=== PATIENT | male | born 1955 | race Caucasian/White ===

== ENCOUNTER 2021-07-11 11:44 | Inpatient (IN) | payer MEDICARE, MEDICAID ==
[~2021-07-11 11:44] MED LIST: Rocuronium Bromide 10 MG/ML (10ML VIAL) ONE; Succinylcholine 200 MG/10 ml SYRINGE FS ONE
[2021-07-11 12:41] LABS: Actual Bicarbonate (HCO3a) 24.6 mEq/L (22-28); Base Excess (BEa) -3.3 mEq/L (-2.0 to +3.0); CO2 Tension 55.2 mmHg (35.0-45.0); Calcium, Ionized (arterial) 1.04 mmol/L (1.12-1.30); Carboxyhemoglobin (COHb) 4.1 gm% (0.0-3.0); Hemoglobin (Hb) 15.2 g/dL (14.0-18.0); O2 Tension (PaO2), arterial 163.4 mmHg (> 80.0); Potassium - ABG Lab 4.6 mmol/L (3.70-5.30); Puncture Site RRA; pH, Arterial 7.27 (7.35-7.45)
[2021-07-11] MEDS ORDERED: Furosemide 40 MG/4 ML VIAL ONE (12:46)
[2021-07-11] MEDS ORDERED: Sodium Chloride 3% 100 ML IVPB SCH ×2 (13:30→16:00)
[2021-07-11] MEDS ORDERED: Acetaminophen 325 MG TAB PO PRN (13:40)
[2021-07-11] MEDS ORDERED: Furosemide 40 MG/4 ML VIAL SLOW IVP SCH ×3 (14:00→23:00)
[2021-07-11 14:19] LABS: CRP (Inflammatory) 4.71 mg/dL (= or < 0.5); Magnesium 1.6 mg/dL (1.6-2.6)
[2021-07-11 14:19] LABS: Anion Gap 19 mmol/L (10-20); BUN (Urea Nitrogen) 8 mg/dL (8.4-25.7); Calc. Creatinine Clearance 0 mL/min (70-130); Calcium 8.5 mg/dL (7.8-10.44); Carbon Dioxide 22 mmol/L (23-31); Chloride 76 mmol/L (98-107); Glucose 119 mg/dL (80-115); Potassium 4.6 mmol/L (3.5-5.1)
[2021-07-11 14:20] LABS: CK (CPK) 1008 U/L (30-200); Phosphorus 3.3 mg/dL (2.3-4.7)
[2021-07-11 14:28] LABS: Sodium 112 mmol/L (136-145)
[2021-07-11 14:32] LABS: Troponin I 0.085 ng/mL (< 0.028)
[2021-07-11 15:59] LABS: Legionella Urinary Ag Negative (Negative); Strep pneumo Urine Ag NEGATIVE (NEGATIVE)
[2021-07-11] MEDS ORDERED: Magnesium 2 GM/50 ML(in water) 2 GM in Premix Bag 1 BAG IVPB SCH (17:30)
[2021-07-11 19:23] LABS: Anion Gap 17 mmol/L (10-20); BUN (Urea Nitrogen) 7 mg/dL (8.4-25.7); Calc. Creatinine Clearance 113 mL/min (70-130); Calcium 8.5 mg/dL (7.8-10.44); Carbon Dioxide 28 mmol/L (23-31); Glucose 112 mg/dL (80-115)
[2021-07-11 19:38] LABS: Chloride 74 mmol/L (98-107); Sodium 115 mmol/L (136-145)
[2021-07-11] MEDS: Sodium Chloride 1 GM TAB PO SCH (23:16)
[2021-07-11] MEDS: Famotidine 20 MG TAB PO SCH (23:16)
[2021-07-11 23:18] LABS: Anion Gap 15 mmol/L (10-20); BUN (Urea Nitrogen) 7 mg/dL (8.4-25.7); Calc. Creatinine Clearance 104 mL/min (70-130); Calcium 8.7 mg/dL (7.8-10.44); Carbon Dioxide 29 mmol/L (23-31); Glucose 116 mg/dL (80-115); Potassium 4.2 mmol/L (3.5-5.1)
[2021-07-11 23:46] LABS: Chloride 74 mmol/L (98-107); Sodium 114 mmol/L (136-145)
[2021-07-11 23:50] LABS: Amphetamine Not Detected (NotDetected); Barbiturates Screen Not Detected (NotDetected); Benzodiazepine Screen Not Detected (NotDetected); Cocaine Metabolite Screen Not Detected (NotDetected); Methadone Not Detected (NotDetected); Methamphetamine Not Detected (NotDetected); Opiate Screen Not Detected (NotDetected); Oxycodone Screen Not Detected (NotDetected); Phencyclidine (PCP) Not Detected (NotDetected); THC/Cannabinoid Screen Not Detected (NotDetected); Tricyclic Screen Not Detected (NotDetected)
[2021-07-12] MEDS ORDERED: Sodium Chloride 3% 100 ML IVPB SCH (00:30)
[2021-07-12 02:22] LABS: Sodium 116 mmol/L (136-145)
[2021-07-12] MEDS ORDERED: Midazolam HCl 2 mg/2 ml Vial ONE (02:51)
[2021-07-12] MEDS ORDERED: Rocuronium Bromide 10 MG/ML (10ML VIAL) ONE (02:55)
[2021-07-12] MEDS ORDERED: Propofol 1,000 MG/100 ML VIAL IV ONE (02:58)
[2021-07-12] MEDS ORDERED: Sodium Chloride 0.9% 1,000 ML IV SCH (03:30)
[2021-07-12 03:46] LABS: Actual Bicarbonate (HCO3a) 27.7 mEq/L (22-28); Base Excess (BEa) -0.7 mEq/L (-2.0 to +3.0); CO2 Tension 61.2 mmHg (35.0-45.0); Calcium, Ionized (arterial) 1.11 mmol/L (1.12-1.30); Hemoglobin (Hb) 15.5 g/dL (14.0-18.0); O2 Tension (PaO2), arterial 122.7 mmHg (> 80.0); Potassium - ABG Lab 3.6 mmol/L (3.70-5.30); Puncture Site RRA; pH, Arterial 7.27 (7.35-7.45)
[2021-07-12] MEDS ORDERED: Furosemide 40 MG/4 ML VIAL SLOW IVP SCH (06:00)
[2021-07-12 06:16] LABS: #Basophils 0.1 10x3/uL (0.0-0.2); #Monocytes 1.5 10x3/uL (0.0-1.1); %Basophils 0.3 % (0.0-2.0); %Eosinophils 0.1 % (0.0-6.0); %Lymphocytes 3.6 % (18.0-47.0); %Monocytes 7.9 % (0.0-10.0); %Neutrophils 87.5 % (40.0-75.0); Mean Corpuscular HGB CONC 34.6 g/dL (32.0-36.0); Mean Corpuscular Hemoglobin 33.4 pg (27.0-33.0); Mean Corpuscular Volume 96.4 fl (81.2-95.1); Mean Platelet Volume 8.9 fl (7.4-10.4); Platelet Count 206 10x3/uL (150-450); RBC Distribution Width 12.6 % (11.5-14.5); Red Blood Cell (RBC) Count 4.49 10x6/uL (4.32-5.72); White Blood Cell (WBC) Count 19.4 10x3/uL (3.5-10.5)
[2021-07-12] MEDS ORDERED: Norepinephrine 8 MG/0.9% NS 250 ML ONE (06:17)
[2021-07-12] MEDS: Cefepime 2 GM in Sodium Chloride 0.9% 100 ML IVPB SCH ×3 (06:37→22:05)
[2021-07-12 06:54] LABS: Anion Gap 15 mmol/L (10-20); BUN (Urea Nitrogen) 9 mg/dL (8.4-25.7); Calc. Creatinine Clearance 104 mL/min (70-130); Calcium 8.4 mg/dL (7.8-10.44); Carbon Dioxide 29 mmol/L (23-31); Chloride 80 mmol/L (98-107); Glucose 106 mg/dL (80-115); Potassium 3.9 mmol/L (3.5-5.1); Sodium 120 mmol/L (136-145)
[2021-07-12 07:00] LABS: Magnesium 1.9 mg/dL (1.6-2.6); Troponin I 0.054 ng/mL (< 0.028)
[2021-07-12 07:05] LABS: Critical Call Chem Troponin I RESULT DECREASING
[2021-07-12] MEDS ORDERED: Vancomycin 1.5 GRAM/300 ML BAG 1.5 GM in Premix Bag 1 BAG IVPB SCH (08:00)
[2021-07-12] MEDS ORDERED: Enoxaparin Sodium 40 MG/0.4 ML SYRINGE SC SCH (09:00)
[2021-07-12 09:24] LABS: Hemoglobin 14.8 g/dL (13.5-17.5); Mean Corpuscular HGB CONC 35.8 g/dL (32.0-36.0); Mean Corpuscular Hemoglobin 34.3 pg (27.0-33.0); Mean Corpuscular Volume 95.6 fl (81.2-95.1); Mean Platelet Volume 8.8 fl (7.4-10.4); Platelet Count 211 10x3/uL (150-450); RBC Distribution Width 12.8 % (11.5-14.5); Red Blood Cell (RBC) Count 4.32 10x6/uL (4.32-5.72); White Blood Cell (WBC) Count 20.8 10x3/uL (3.5-10.5)
[2021-07-12] MEDS ORDERED: Iopamidol 370 76% 100 ML VIAL ONE (09:43)
[2021-07-12] MEDS ORDERED: Dextrose 5% in Water 1,000 ML IV SCH (09:45)
[2021-07-12 09:47] LABS: Anion Gap 14 mmol/L (10-20); BUN (Urea Nitrogen) 10 mg/dL (8.4-25.7); Calc. Creatinine Clearance 94 mL/min (70-130); Calcium 8.1 mg/dL (7.8-10.44); Carbon Dioxide 29 mmol/L (23-31); Chloride 81 mmol/L (98-107); Glucose 117 mg/dL (80-115); Sodium 120 mmol/L (136-145)
[2021-07-12] MEDS ORDERED: Enoxaparin Sodium 30 MG/0.3 ML SYRINGE SC SCH (10:00)
[2021-07-12 10:45] LABS: Lactic Acid 1.2 mmol/L (0.5-2.2)
[2021-07-12] MEDS: Aspirin Chewable 81 MG TAB PO SCH (10:59)
[2021-07-12] MEDS: Famotidine 20 MG TAB PO SCH ×2 (10:59→20:16)
[2021-07-12] MEDS: Vasopressin 20 UNIT, Admixture Fee 1 EACH in Sodium Chloride 0.9% 50 ML IV SCH ×2 (12:00→17:03)
[2021-07-12 12:27] LABS: Anion Gap 15 mmol/L (10-20); BUN (Urea Nitrogen) 11 mg/dL (8.4-25.7); Calc. Creatinine Clearance 91 mL/min (70-130); Calcium 8.3 mg/dL (7.8-10.44); Carbon Dioxide 29 mmol/L (23-31); Chloride 80 mmol/L (98-107); Glucose 101 mg/dL (80-115); Magnesium 1.7 mg/dL (1.6-2.6); Phosphorus 3.4 mg/dL (2.3-4.7); Potassium 4.1 mmol/L (3.5-5.1); Sodium 120 mmol/L (136-145)
[2021-07-12] MEDS: Sodium Chloride 1 GM TAB PO SCH ×3 (13:03→20:25)
[2021-07-12] MEDS: Albumin 25% 25 GM/100 ML BOT IVPB SCH ×2 (15:26→20:16)
[2021-07-12 16:25] LABS: Phosphorus 3.1 mg/dL (2.3-4.7)
[2021-07-12 16:27] LABS: Anion Gap 13 mmol/L (10-20); BUN (Urea Nitrogen) 12 mg/dL (8.4-25.7); Calc. Creatinine Clearance 94 mL/min (70-130); Calcium 8.2 mg/dL (7.8-10.44); Carbon Dioxide 28 mmol/L (23-31); Chloride 82 mmol/L (98-107); Glucose 95 mg/dL (80-115); Magnesium 1.7 mg/dL (1.6-2.6); Potassium 3.9 mmol/L (3.5-5.1)
[2021-07-12 16:48] LABS: Sodium 119 mmol/L (136-145)
[2021-07-12] MEDS: Magnesium 2 GM/50 ML(in water) 2 GM in Premix Bag 1 BAG IVPB SCH ×2 (17:22→18:38)
[2021-07-12] MEDS: Norepinephrine 8 MG/0.9% NS 250 ML IVPB SCH (17:41)
[2021-07-12] MEDS: fentaNYL Citrate-0.9 % NaCl/PF 100 ML IVPB SCH (17:48)
[2021-07-12] MEDS ORDERED: Hydrocortisone Sod Succ/PF 100 mg/2 ml Vial IVP SCH (18:15)
[2021-07-12] MEDS ORDERED: Albumin 25% 25 GM/100 ML BOT IVPB SCH (18:15)
[2021-07-12 19:12] LABS: Phosphorus 2.5 mg/dL (2.3-4.7)
[2021-07-12 19:14] LABS: Anion Gap 14 mmol/L (10-20); BUN (Urea Nitrogen) 12 mg/dL (8.4-25.7); Calc. Creatinine Clearance 94 mL/min (70-130); Calcium 8.2 mg/dL (7.8-10.44); Carbon Dioxide 27 mmol/L (23-31); Chloride 83 mmol/L (98-107); Glucose 84 mg/dL (80-115); Magnesium 2.2 mg/dL (1.6-2.6); Potassium 3.6 mmol/L (3.5-5.1); Sodium 120 mmol/L (136-145)
[2021-07-12] MEDS: Budesonide 0.5 MG/2 ML NEB NEB SCH (19:14)
[2021-07-12] MEDS: Vancomycin HCl 1 GM in Sodium Chloride 0.9% 250 ML 250 ML IVPB SCH (20:17)
[2021-07-12] MEDS ORDERED: Potassium Bicarbonate/Cit Ac 20 MEQ TAB PER TUBE SCH (22:15)
[2021-07-12] MEDS ORDERED: Magnesium 2 GM/50 ML(in water) 2 GM in Premix Bag 1 BAG IVPB SCH (22:30)
[2021-07-12 23:49] LABS: Magnesium 2.6 mg/dL (1.6-2.6); Phosphorus 2.6 mg/dL (2.3-4.7)
[2021-07-13] MEDS: Vasopressin 20 UNIT, Admixture Fee 1 EACH in Sodium Chloride 0.9% 50 ML IV SCH ×3 (00:17→11:58)
[2021-07-13] MEDS: Hydrocortisone Sod Succ/PF 100 mg/2 ml Vial IVP SCH ×4 (00:35→18:31)
[2021-07-13] MEDS: Albumin 25% 25 GM/100 ML BOT IVPB SCH ×2 (02:19→10:20)
[2021-07-13] MEDS: Norepinephrine 8 MG/0.9% NS 250 ML IVPB SCH (04:13)
[2021-07-13 04:26] LABS: #Eosinphils 0.1 10x3/uL (0.0-0.5); #Monocytes 0.7 10x3/uL (0.0-1.1); %Basophils 0.2 % (0.0-2.0); %Eosinophils 0.4 % (0.0-6.0); %Lymphocytes 1.6 % (18.0-47.0); %Monocytes 3.8 % (0.0-10.0); %Neutrophils 93.3 % (40.0-75.0); Hemoglobin 11.9 g/dL (13.5-17.5); Mean Corpuscular HGB CONC 33.9 g/dL (32.0-36.0); Mean Corpuscular Hemoglobin 33.2 pg (27.0-33.0); Mean Platelet Volume 9.1 fl (7.4-10.4); Platelet Count 158 10x3/uL (150-450); RBC Distribution Width 12.5 % (11.5-14.5); Red Blood Cell (RBC) Count 3.58 10x6/uL (4.32-5.72); White Blood Cell (WBC) Count 17.2 10x3/uL (3.5-10.5)
[2021-07-13 04:38] LABS: Phosphorus 2.9 mg/dL (2.3-4.7)
[2021-07-13 04:41] LABS: Anion Gap 17 mmol/L (10-20); BUN (Urea Nitrogen) 14 mg/dL (8.4-25.7); Calc. Creatinine Clearance 86 mL/min (70-130); Calcium 8.5 mg/dL (7.8-10.44); Carbon Dioxide 24 mmol/L (23-31); Chloride 85 mmol/L (98-107); Glucose 116 mg/dL (80-115); Potassium 4.3 mmol/L (3.5-5.1); Sodium 122 mmol/L (136-145)
[2021-07-13] MEDS: Cefepime 2 GM in Sodium Chloride 0.9% 100 ML IVPB SCH ×2 (04:53→13:06)
[2021-07-13] MEDS: Budesonide 0.5 MG/2 ML NEB NEB SCH ×2 (07:46→19:27)
[2021-07-13] MEDS ORDERED: DEXMEDETOMIDINE ONE (08:24)
[2021-07-13] MEDS ORDERED: NACL 0.9% ONE (08:24)
[2021-07-13] MEDS: Dexmedetomidine In 0.9 % NaCl 100 ML IVPB SCH ×3 (08:30→22:29)
[2021-07-13] MEDS: fentaNYL Citrate-0.9 % NaCl/PF 100 ML IVPB SCH ×2 (08:49→16:24)
[2021-07-13] MEDS: Aspirin Chewable 81 MG TAB PO SCH (10:20)
[2021-07-13] MEDS: Sodium Chloride 1 GM TAB PO SCH ×3 (10:21→22:50)
[2021-07-13] MEDS: Enoxaparin Sodium 40 MG/0.4 ML SYRINGE SC SCH (10:21)
[2021-07-13] MEDS: Vancomycin HCl 1 GM in Sodium Chloride 0.9% 250 ML 250 ML IVPB SCH ×2 (10:22→22:48)
[2021-07-13] MEDS: Famotidine 20 MG TAB PO SCH ×2 (10:22→22:49)
[2021-07-13 10:56] LABS: Actual Bicarbonate (HCO3a) 26.3 mEq/L (22-28); Base Excess (BEa) -2.2 mEq/L (-2.0 to +3.0); CO2 Tension 62.5 mmHg (35.0-45.0); Calcium, Ionized (arterial) 1.18 mmol/L (1.12-1.30); Carboxyhemoglobin (COHb) 1.1 gm% (0.0-3.0); Hemoglobin (Hb) 13.2 g/dL (14.0-18.0); O2 Tension (PaO2), arterial 64.5 mmHg (> 80.0); Potassium - ABG Lab 4.8 mmol/L (3.70-5.30); Puncture Site Arterial Line; pH, Arterial 7.24 (7.35-7.45)
[2021-07-13 10:59] LABS: ALV-art Gradient 178.225 mmHg (0-20)
[2021-07-13] MEDS ORDERED: Thiamine HCl 200 MG/2 ML VIAL SLOW IVP SCH (11:15)
[2021-07-13] MEDS: Thiamine HCl 500 MG, Admixture Fee 1 EACH in Sodium Chloride 0.9% 100 ML IVPB SCH (12:00)
[2021-07-13] MEDS ORDERED: Cefepime 2 GM VIAL ONE ×3 (12:49→12:50)
[2021-07-13] MEDS: Metoclopramide HCl 10 MG/2 ML VIAL IVP SCH ×2 (12:58→18:29)
[2021-07-13] MEDS ORDERED: Polyethylene Glycol 3350 17 GM Packet PER TUBE SCH (13:00)
[2021-07-13] MEDS ORDERED: Senokot S 8.6-50 MG TAB PER TUBE SCH (13:00)
[2021-07-13] MEDS ORDERED: Sodium Chloride 0.9% 1,000 ML IV SCH (13:00)
[2021-07-13 13:06] LABS: Anion Gap 15 mmol/L (10-20); BUN (Urea Nitrogen) 17 mg/dL (8.4-25.7); Calc. Creatinine Clearance 84 mL/min (70-130); Calcium 8.6 mg/dL (7.8-10.44); Carbon Dioxide 27 mmol/L (23-31); Chloride 87 mmol/L (98-107); Glucose 171 mg/dL (80-115); Magnesium 2.7 mg/dL (1.6-2.6); Potassium 4.9 mmol/L (3.5-5.1); Sodium 124 mmol/L (136-145)
[2021-07-13 15:54] LABS: Anion Gap 13 mmol/L (10-20); BUN (Urea Nitrogen) 18 mg/dL (8.4-25.7); Calc. Creatinine Clearance 91 mL/min (70-130); Calcium 8.6 mg/dL (7.8-10.44); Carbon Dioxide 26 mmol/L (23-31); Chloride 90 mmol/L (98-107); Glucose 167 mg/dL (80-115); Magnesium 2.5 mg/dL (1.6-2.6); Phosphorus 2.1 mg/dL (2.3-4.7); Potassium 4.7 mmol/L (3.5-5.1); Sodium 124 mmol/L (136-145)
[2021-07-13] MEDS: Haloperidol Lactate 5 MG/ML VIAL SLOW IVP PRN (17:15)
[2021-07-13 18:49] LABS: Anion Gap 11 mmol/L (10-20); BUN (Urea Nitrogen) 19 mg/dL (8.4-25.7); Calc. Creatinine Clearance 87 mL/min (70-130); Calcium 8.7 mg/dL (7.8-10.44); Carbon Dioxide 27 mmol/L (23-31); Chloride 89 mmol/L (98-107); Glucose 164 mg/dL (80-115); Magnesium 2.6 mg/dL (1.6-2.6); Potassium 4.6 mmol/L (3.5-5.1); Sodium 122 mmol/L (136-145)
[2021-07-13 20:21] LABS: Vancomycin, Trough 13.8 ug/mL
[2021-07-13] MEDS ORDERED: Sodium Chloride 0.9% 250 ML 250 ML ONE ×2 (22:49)
[2021-07-13] MEDS: Senokot S 8.6-50 MG TAB PER TUBE SCH (22:49)
[2021-07-13] MEDS: Sodium Chloride 0.9% 1,000 ML IV SCH (22:50)
[2021-07-14] MEDS: Cefepime 2 GM in Sodium Chloride 0.9% 100 ML IVPB SCH ×4 (00:08→20:43)
[2021-07-14 00:13] LABS: Anion Gap 16 mmol/L (10-20); BUN (Urea Nitrogen) 18 mg/dL (8.4-25.7); Calc. Creatinine Clearance 91 mL/min (70-130); Calcium 8.6 mg/dL (7.8-10.44); Carbon Dioxide 24 mmol/L (23-31); Chloride 94 mmol/L (98-107); Glucose 160 mg/dL (80-115); Magnesium 2.5 mg/dL (1.6-2.6); Potassium 4.7 mmol/L (3.5-5.1); Sodium 129 mmol/L (136-145)
[2021-07-14 00:17] LABS: Phosphorus 1.7 mg/dL (2.3-4.7)
[2021-07-14] MEDS: Hydrocortisone Sod Succ/PF 100 mg/2 ml Vial IVP SCH ×5 (00:32→23:34)
[2021-07-14] MEDS: Metoclopramide HCl 10 MG/2 ML VIAL IVP SCH ×5 (00:33→23:34)
[2021-07-14] MEDS: fentaNYL Citrate-0.9 % NaCl/PF 100 ML IVPB SCH ×3 (01:04→17:08)
[2021-07-14 03:53] LABS: #Neutrophils 13.3 10x3/uL (1.5-8.4); %Basophils 0.1 % (0.0-2.0); %Lymphocytes 2.6 % (18.0-47.0); %Monocytes 6.9 % (0.0-10.0); %Neutrophils 89.8 % (40.0-75.0); Hemoglobin 12.1 g/dL (13.5-17.5); Mean Corpuscular HGB CONC 34.9 g/dL (32.0-36.0); Mean Corpuscular Hemoglobin 33.3 pg (27.0-33.0); Mean Corpuscular Volume 95.6 fl (81.2-95.1); Mean Platelet Volume 9.2 fl (7.4-10.4); Platelet Count 164 10x3/uL (150-450); RBC Distribution Width 12.9 % (11.5-14.5); Red Blood Cell (RBC) Count 3.63 10x6/uL (4.32-5.72); White Blood Cell (WBC) Count 14.8 10x3/uL (3.5-10.5)
[2021-07-14 04:08] LABS: Anion Gap 15 mmol/L (10-20); BUN (Urea Nitrogen) 19 mg/dL (8.4-25.7); Calc. Creatinine Clearance 88 mL/min (70-130); Calcium 8.7 mg/dL (7.8-10.44); Carbon Dioxide 24 mmol/L (23-31); Chloride 94 mmol/L (98-107); Glucose 172 mg/dL (80-115); Potassium 4.7 mmol/L (3.5-5.1); Sodium 128 mmol/L (136-145)
[2021-07-14] MEDS: Dexmedetomidine In 0.9 % NaCl 100 ML IVPB SCH ×4 (04:49→23:45)
[2021-07-14] MEDS: Budesonide 0.5 MG/2 ML NEB NEB SCH ×2 (05:11→19:35)
[2021-07-14 06:24] LABS: Magnesium 2.6 mg/dL (1.6-2.6)
[2021-07-14 06:27] LABS: Phosphorus 1.9 mg/dL (2.3-4.7)
[2021-07-14 08:06] LABS: Anion Gap 14 mmol/L (10-20); BUN (Urea Nitrogen) 19 mg/dL (8.4-25.7); Calc. Creatinine Clearance 89 mL/min (70-130); Calcium 8.7 mg/dL (7.8-10.44); Carbon Dioxide 23 mmol/L (23-31); Chloride 95 mmol/L (98-107); Glucose 183 mg/dL (80-115); Magnesium 2.6 mg/dL (1.6-2.6); Potassium 4.8 mmol/L (3.5-5.1); Sodium 127 mmol/L (136-145)
[2021-07-14 08:12] LABS: Vancomycin, Trough 14.7 ug/mL
[2021-07-14 08:14] LABS: Phosphorus 1.7 mg/dL (2.3-4.7)
[2021-07-14] MEDS: Senokot S 8.6-50 MG TAB PER TUBE SCH ×2 (08:21→20:43)
[2021-07-14] MEDS: Aspirin Chewable 81 MG TAB PO SCH (08:21)
[2021-07-14] MEDS: Famotidine/PF 20 mg/2ml Vial SLOW IVP SCH ×2 (08:22→20:43)
[2021-07-14] MEDS: Enoxaparin Sodium 40 MG/0.4 ML SYRINGE SC SCH (08:22)
[2021-07-14] MEDS: Vancomycin HCl 1 GM in Sodium Chloride 0.9% 250 ML 250 ML IVPB SCH ×2 (08:22→20:43)
[2021-07-14] MEDS: Polyethylene Glycol 3350 17 GM Packet PER TUBE SCH (08:22)
[2021-07-14] MEDS ORDERED: Sodium Phosphate 15 MMOL in Sodium Chloride 0.9% 250 ML 250 ML IVPB SCH (09:00)
[2021-07-14] MEDS ORDERED: Rocuronium Bromide 10 MG/ML (10ML VIAL) ONE (11:00)
[2021-07-14] MEDS ORDERED: Lorazepam 2 MG/ML VIAL SLOW IVP PRN (11:52)
[2021-07-14] MEDS ORDERED: Ethambutol HCl 400 MG TAB PER TUBE SCH (12:00)
[2021-07-14] MEDS ORDERED: Pyrazinamide 500 MG TAB PER TUBE SCH ×2 (12:00→15:15)
[2021-07-14] MEDS ORDERED: PHENobarbital Sodium 65 MG/ML VIAL SLOW IVP SCH (12:00)
[2021-07-14] MEDS ORDERED: Rifampin 300 MG CAP PO SCH (12:00)
[2021-07-14] MEDS ORDERED: Isoniazid 100 MG TAB PO SCH (12:00)
[2021-07-14 12:05] LABS: HIV (1/2) Antibody/Antigen Non-Reactive (NonReactive); HIV 1/2 INDEX 0.05 S/CO (<1.00)
[2021-07-14 12:12] LABS: Actual Bicarbonate (HCO3a) 26.9 mEq/L (22-28); Base Excess (BEa) 0.5 mEq/L (-2.0 to +3.0); CO2 Tension 50.7 mmHg (35.0-45.0); Calcium, Ionized (arterial) 1.21 mmol/L (1.12-1.30); Carboxyhemoglobin (COHb) 0.7 gm% (0.0-3.0); Hemoglobin (Hb) 12.8 g/dL (14.0-18.0); O2 Tension (PaO2), arterial 239.7 mmHg (> 80.0); Potassium - ABG Lab 4.7 mmol/L (3.70-5.30); Puncture Site Arterial Line; pH, Arterial 7.34 (7.35-7.45)
[2021-07-14] MEDS: Thiamine HCl 500 MG, Admixture Fee 1 EACH in Sodium Chloride 0.9% 100 ML IVPB SCH (12:14)
[2021-07-14 12:16] LABS: ALV-art Gradient 409.925 mmHg (0-20)
[2021-07-14] MEDS: Prenatal Vitamin 1 TAB PO SCH (12:20)
[2021-07-14] MEDS ORDERED: SODIUM CHLORIDE IVPB SCH (12:30)
[2021-07-14] MEDS ORDERED: ADMIXTURE FEE IVPB SCH (12:30)
[2021-07-14] MEDS ORDERED: PHENOBARBITAL SODIUM IVPB SCH (12:30)
[2021-07-14 13:16] LABS: BF Color White; BF RBC Count - Manual 261 /cu.mm; BF WBC/Nonhematics Ct.-Manual 8806 /cu.mm; Body Fluid Source Bronchial Washings; Clarity Cloudy/Turbid (Clear); Tube # 1
[2021-07-14 13:16] LABS: Anion Gap 12 mmol/L (10-20); BUN (Urea Nitrogen) 20 mg/dL (8.4-25.7); Calc. Creatinine Clearance 97 mL/min (70-130); Calcium 8.7 mg/dL (7.8-10.44); Carbon Dioxide 25 mmol/L (23-31); Chloride 94 mmol/L (98-107); Glucose 159 mg/dL (80-115); Magnesium 2.5 mg/dL (1.6-2.6); Phosphorus 2.5 mg/dL (2.3-4.7); Potassium 4.8 mmol/L (3.5-5.1); Sodium 126 mmol/L (136-145)
[2021-07-14 13:57] LABS: BF Segmented Neutrophils 98 %; Lymphocytes 2 %
[2021-07-14 17:49] LABS: Anion Gap 12 mmol/L (10-20); BUN (Urea Nitrogen) 20 mg/dL (8.4-25.7); Calc. Creatinine Clearance 95 mL/min (70-130); Calcium 8.6 mg/dL (7.8-10.44); Carbon Dioxide 24 mmol/L (23-31); Chloride 97 mmol/L (98-107); Glucose 174 mg/dL (80-115); Magnesium 2.4 mg/dL (1.6-2.6); Phosphorus 2.3 mg/dL (2.3-4.7); Potassium 4.8 mmol/L (3.5-5.1); Sodium 128 mmol/L (136-145)
[2021-07-14] MEDS ORDERED: Magnesium 2 GM/50 ML(in water) 2 GM in Premix Bag 1 BAG IVPB SCH (18:15)
[2021-07-14 22:01] LABS: Anion Gap 10 mmol/L (10-20); BUN (Urea Nitrogen) 21 mg/dL (8.4-25.7); Calc. Creatinine Clearance 94 mL/min (70-130); Calcium 8.5 mg/dL (7.8-10.44); Carbon Dioxide 27 mmol/L (23-31); Chloride 96 mmol/L (98-107); Glucose 176 mg/dL (80-115); Magnesium 3.2 mg/dL (1.6-2.6); Phosphorus 2.4 mg/dL (2.3-4.7); Potassium 4.7 mmol/L (3.5-5.1); Sodium 128 mmol/L (136-145)
[2021-07-15 01:30] LABS: Anion Gap 15 mmol/L (10-20); BUN (Urea Nitrogen) 22 mg/dL (8.4-25.7); Calc. Creatinine Clearance 90 mL/min (70-130); Calcium 8.4 mg/dL (7.8-10.44); Carbon Dioxide 22 mmol/L (23-31); Chloride 98 mmol/L (98-107); Glucose 174 mg/dL (80-115); Magnesium 2.7 mg/dL (1.6-2.6); Phosphorus 2.5 mg/dL (2.3-4.7); Potassium 4.9 mmol/L (3.5-5.1); Sodium 130 mmol/L (136-145)
[2021-07-15] MEDS: fentaNYL Citrate-0.9 % NaCl/PF 100 ML IVPB SCH ×3 (02:25→19:45)
[2021-07-15 03:37] LABS: #Monocytes 0.9 10x3/uL (0.0-1.1); #Neutrophils 13.6 10x3/uL (1.5-8.4); %Basophils 0.1 % (0.0-2.0); %Lymphocytes 3.5 % (18.0-47.0); %Monocytes 5.9 % (0.0-10.0); %Neutrophils 89.9 % (40.0-75.0); Hemoglobin 12.6 g/dL (13.5-17.5); Mean Corpuscular HGB CONC 35.2 g/dL (32.0-36.0); Mean Corpuscular Hemoglobin 33.5 pg (27.0-33.0); Mean Corpuscular Volume 95.2 fl (81.2-95.1); Mean Platelet Volume 9.1 fl (7.4-10.4); Platelet Count 162 10x3/uL (150-450); RBC Distribution Width 13.3 % (11.5-14.5); Red Blood Cell (RBC) Count 3.76 10x6/uL (4.32-5.72); White Blood Cell (WBC) Count 15.1 10x3/uL (3.5-10.5)
[2021-07-15 03:37] LABS: Actual Bicarbonate (HCO3a) 24.8 mEq/L (22-28); CO2 Tension 41.1 mmHg (35.0-45.0); Calcium, Ionized (arterial) 1.19 mmol/L (1.12-1.30); Carboxyhemoglobin (COHb) 0.7 gm% (0.0-3.0); Hemoglobin (Hb) 13.5 g/dL (14.0-18.0); O2 Tension (PaO2), arterial 93.2 mmHg (> 80.0); Potassium - ABG Lab 4.7 mmol/L (3.70-5.30); Puncture Site Arterial Line
[2021-07-15 03:40] LABS: ALV-art Gradient 176.275 mmHg (0-20)
[2021-07-15 03:53] LABS: Albumin 3.3 g/dL (3.4-4.8); Anion Gap 13 mmol/L (10-20); BUN (Urea Nitrogen) 22 mg/dL (8.4-25.7); BUN/Creatinine Ratio 27.85; Calc. Creatinine Clearance 91 mL/min (70-130); Calcium 8.5 mg/dL (7.8-10.44); Carbon Dioxide 23 mmol/L (23-31); Chloride 98 mmol/L (98-107); Glucose 184 mg/dL (80-115); Phosphorus 2.3 mg/dL (2.3-4.7); Sodium 129 mmol/L (136-145)
[2021-07-15] MEDS: Dexmedetomidine In 0.9 % NaCl 100 ML IVPB SCH ×4 (04:58→23:16)
[2021-07-15] MEDS: Hydrocortisone Sod Succ/PF 100 mg/2 ml Vial IVP SCH ×3 (04:58→17:40)
[2021-07-15] MEDS: Cefepime 2 GM in Sodium Chloride 0.9% 100 ML IVPB SCH ×3 (04:58→20:59)
[2021-07-15 06:34] LABS: Anion Gap 14 mmol/L (10-20); BUN (Urea Nitrogen) 22 mg/dL (8.4-25.7); Calc. Creatinine Clearance 98 mL/min (70-130); Calcium 8.6 mg/dL (7.8-10.44); Carbon Dioxide 22 mmol/L (23-31); Chloride 99 mmol/L (98-107); Glucose 179 mg/dL (80-115); Magnesium 2.6 mg/dL (1.6-2.6); Phosphorus 2.4 mg/dL (2.3-4.7); Potassium 4.8 mmol/L (3.5-5.1); Sodium 130 mmol/L (136-145)
[2021-07-15] MEDS: Budesonide 0.5 MG/2 ML NEB NEB SCH ×2 (07:50→19:33)
[2021-07-15] MEDS: Polyethylene Glycol 3350 17 GM Packet PER TUBE SCH (08:04)
[2021-07-15] MEDS: Aspirin Chewable 81 MG TAB PO SCH (08:05)
[2021-07-15] MEDS: Enoxaparin Sodium 40 MG/0.4 ML SYRINGE SC SCH (08:05)
[2021-07-15] MEDS: Famotidine/PF 20 mg/2ml Vial SLOW IVP SCH ×2 (08:05→20:58)
[2021-07-15] MEDS: Ethambutol HCl 400 MG TAB PER TUBE SCH (08:06)
[2021-07-15] MEDS: Rifampin 300 MG CAP PO SCH (08:07)
[2021-07-15] MEDS: Pyrazinamide 500 MG TAB PER TUBE SCH (08:08)
[2021-07-15] MEDS: Isoniazid 100 MG TAB PO SCH (08:09)
[2021-07-15] MEDS: Senokot S 8.6-50 MG TAB PER TUBE SCH ×2 (08:11→21:00)
[2021-07-15] MEDS ORDERED: Ethambutol HCl 400 MG TAB PER TUBE SCH (09:00)
[2021-07-15] MEDS ORDERED: Pyrazinamide 500 MG TAB PER TUBE SCH (09:00)
[2021-07-15] MEDS: Vancomycin HCl 1 GM in Sodium Chloride 0.9% 250 ML 250 ML IVPB SCH ×2 (09:32→23:43)
[2021-07-15] MEDS ORDERED: Rifampin 300 MG CAP PO SCH (10:00)
[2021-07-15 10:56] LABS: Anion Gap 11 mmol/L (10-20); BUN (Urea Nitrogen) 25 mg/dL (8.4-25.7); Calc. Creatinine Clearance 98 mL/min (70-130); Calcium 8.3 mg/dL (7.8-10.44); Carbon Dioxide 25 mmol/L (23-31); Chloride 98 mmol/L (98-107); Glucose 202 mg/dL (80-115); Magnesium 2.9 mg/dL (1.6-2.6); Phosphorus 2.6 mg/dL (2.3-4.7); Potassium 4.7 mmol/L (3.5-5.1); Sodium 129 mmol/L (136-145)
[2021-07-15] MEDS: Metoclopramide HCl 10 MG/2 ML VIAL IVP SCH ×3 (11:20→19:44)
[2021-07-15] MEDS: Prenatal Vitamin 1 TAB PO SCH (11:28)
[2021-07-15] MEDS: Thiamine HCl 500 MG, Admixture Fee 1 EACH in Sodium Chloride 0.9% 100 ML IVPB SCH (12:52)
[2021-07-15] MEDS: Sodium Chloride 0.9% 1,000 ML IV SCH (13:14)
[2021-07-15] MEDS ORDERED: Sodium Chloride 0.9% 100 ML ONE (21:00)
[2021-07-15 21:32] LABS: Vancomycin, Trough 14.9 ug/mL
[2021-07-15] MEDS: Scopolamine 1.5 mg/72 hour Patch TD SCH (23:46)
[2021-07-16] MEDS: Hydrocortisone Sod Succ/PF 100 mg/2 ml Vial IVP SCH ×4 (01:26→20:16)
[2021-07-16] MEDS: Metoclopramide HCl 10 MG/2 ML VIAL IVP SCH ×4 (01:26→20:16)
[2021-07-16] MEDS: Sodium Chloride 0.9% 1,000 ML IV SCH ×2 (01:28→15:15)
[2021-07-16 03:18] LABS: ALV-art Gradient 120.325 mmHg (0-20); Actual Bicarbonate (HCO3a) 22.9 mEq/L (22-28); CO2 Tension 44.1 mmHg (35.0-45.0); Calcium, Ionized (arterial) 1.26 mmol/L (1.12-1.30); Carboxyhemoglobin (COHb) 0.9 gm% (0.0-3.0); Hemoglobin (Hb) 13.7 g/dL (14.0-18.0); O2 Tension (PaO2), arterial 74.1 mmHg (> 80.0); Potassium - ABG Lab 5.1 mmol/L (3.70-5.30); Puncture Site Arterial Line; pH, Arterial 7.33 (7.35-7.45)
[2021-07-16 04:25] LABS: ALT (SGPT) Less than 6 U/L (8-55); AST (SGOT) 12 U/L (5-34); Albumin 3.2 g/dL (3.4-4.8); Alkaline Phosphatase 50 U/L (40-110); Anion Gap 13 mmol/L (10-20); BUN (Urea Nitrogen) 27 mg/dL (8.4-25.7); Bilirubin, Total 0.4 mg/dL (0.2-1.2); Calc. Creatinine Clearance 88 mL/min (70-130); Calcium 8.5 mg/dL (7.8-10.44); Carbon Dioxide 24 mmol/L (23-31); Chloride 101 mmol/L (98-107); Globulin 2.4 g/dL (2.4-3.5); Glucose 149 mg/dL (80-115); Magnesium 2.5 mg/dL (1.6-2.6); Phosphorus 2.3 mg/dL (2.3-4.7); Potassium 4.9 mmol/L (3.5-5.1); Protein, Total 5.6 g/dL (5.8-8.1); Sodium 133 mmol/L (136-145)
[2021-07-16 04:48] LABS: #Monocytes 1.4 10x3/uL (0.0-1.1); #Neutrophils 16.8 10x3/uL (1.5-8.4); %Basophils 0.2 % (0.0-2.0); %Lymphocytes 3.3 % (18.0-47.0); %Monocytes 7.4 % (0.0-10.0); %Neutrophils 88.4 % (40.0-75.0); Hemoglobin 12.4 g/dL (13.5-17.5); Mean Corpuscular HGB CONC 33.2 g/dL (32.0-36.0); Mean Corpuscular Hemoglobin 33.3 pg (27.0-33.0); Mean Corpuscular Volume 100.3 fl (81.2-95.1); Mean Platelet Volume 9.3 fl (7.4-10.4); Platelet Count 166 10x3/uL (150-450); RBC Distribution Width 13.8 % (11.5-14.5); Red Blood Cell (RBC) Count 3.72 10x6/uL (4.32-5.72); White Blood Cell (WBC) Count 18.9 10x3/uL (3.5-10.5)
[2021-07-16] MEDS: Dexmedetomidine In 0.9 % NaCl 100 ML IVPB SCH ×4 (05:51→23:52)
[2021-07-16] MEDS: fentaNYL Citrate-0.9 % NaCl/PF 100 ML IVPB SCH ×2 (05:51→16:26)
[2021-07-16] MEDS: Cefepime 2 GM in Sodium Chloride 0.9% 100 ML IVPB SCH ×3 (05:51→20:22)
[2021-07-16] MEDS: Budesonide 0.5 MG/2 ML NEB NEB SCH ×2 (07:18→20:29)
[2021-07-16] MEDS: Enoxaparin Sodium 40 MG/0.4 ML SYRINGE SC SCH (07:46)
[2021-07-16] MEDS: Aspirin Chewable 81 MG TAB PO SCH (07:46)
[2021-07-16] MEDS: Polyethylene Glycol 3350 17 GM Packet PER TUBE SCH (07:46)
[2021-07-16] MEDS: Senokot S 8.6-50 MG TAB PER TUBE SCH ×2 (07:46→20:15)
[2021-07-16] MEDS: Vancomycin HCl 1 GM in Sodium Chloride 0.9% 250 ML 250 ML IVPB SCH ×2 (07:46→20:17)
[2021-07-16] MEDS: Famotidine/PF 20 mg/2ml Vial SLOW IVP SCH ×2 (07:47→20:16)
[2021-07-16] MEDS: Rifampin 300 MG CAP PO SCH (07:49)
[2021-07-16] MEDS: Ethambutol HCl 400 MG TAB PER TUBE SCH (07:49)
[2021-07-16] MEDS: Isoniazid 100 MG TAB PO SCH (07:50)
[2021-07-16] MEDS: Sodium Chloride 1 GM TAB PO SCH ×3 (07:50→20:22)
[2021-07-16] MEDS: Pyrazinamide 500 MG TAB PER TUBE SCH (07:53)
[2021-07-16] MEDS: Prenatal Vitamin 1 TAB PO SCH (12:31)
[2021-07-16] MEDS: Thiamine HCl 500 MG, Admixture Fee 1 EACH in Sodium Chloride 0.9% 100 ML IVPB SCH (13:02)
[2021-07-16] MEDS: oxyCODONE 5 MG TAB PO SCH (16:24)
[2021-07-16] MEDS: Diazepam 5 MG TAB PO SCH (20:15)
[2021-07-16] MEDS ORDERED: Polyethylene Glycol 3350 17 GM Packet PER TUBE SCH (22:00)
[2021-07-17] MEDS: fentaNYL Citrate-0.9 % NaCl/PF 100 ML IVPB SCH ×2 (00:53→13:44)
[2021-07-17] MEDS: Hydrocortisone Sod Succ/PF 100 mg/2 ml Vial IVP SCH ×4 (01:56→19:46)
[2021-07-17] MEDS: Metoclopramide HCl 10 MG/2 ML VIAL IVP SCH ×4 (01:56→19:46)
[2021-07-17 04:22] LABS: Hemoglobin 11.8 g/dL (13.5-17.5); Mean Corpuscular HGB CONC 33.4 g/dL (32.0-36.0); Mean Corpuscular Hemoglobin 33.4 pg (27.0-33.0); Mean Platelet Volume 9.3 fl (7.4-10.4); Platelet Count 164 10x3/uL (150-450); RBC Distribution Width 14.3 % (11.5-14.5); Red Blood Cell (RBC) Count 3.53 10x6/uL (4.32-5.72); White Blood Cell (WBC) Count 20.6 10x3/uL (3.5-10.5)
[2021-07-17 04:29] LABS: ALV-art Gradient 76.725 mmHg (0-20); Actual Bicarbonate (HCO3a) 20.1 mEq/L (22-28); Base Excess (BEa) -5.1 mEq/L (-2.0 to +3.0); CO2 Tension 37.7 mmHg (35.0-45.0); Calcium, Ionized (arterial) 1.23 mmol/L (1.12-1.30); Hemoglobin (Hb) 13.6 g/dL (14.0-18.0); O2 Tension (PaO2), arterial 125.7 mmHg (> 80.0); Potassium - ABG Lab 5.3 mmol/L (3.70-5.30); Puncture Site Arterial Line; pH, Arterial 7.34 (7.35-7.45)
[2021-07-17 04:29] LABS: Albumin 2.8 g/dL (3.4-4.8); Anion Gap 12 mmol/L (10-20); BUN (Urea Nitrogen) 35 mg/dL (8.4-25.7); BUN/Creatinine Ratio 42.17; Calc. Creatinine Clearance 96 mL/min (70-130); Calcium 7.8 mg/dL (7.8-10.44); Carbon Dioxide 18 mmol/L (23-31); Chloride 110 mmol/L (98-107); Glucose 143 mg/dL (80-115); Sodium 135 mmol/L (136-145)
[2021-07-17 04:31] LABS: Phosphorus 1.9 mg/dL (2.3-4.7)
[2021-07-17] MEDS ORDERED: Sodium Phosphate 30 MMOL in Sodium Chloride 0.9% 250 ML 250 ML IVPB SCH (05:00)
[2021-07-17] MEDS: Sodium Chloride 0.9% 1,000 ML IV SCH ×2 (05:21→20:45)
[2021-07-17] MEDS: oxyCODONE 5 MG TAB PO SCH ×2 (05:21→15:10)
[2021-07-17] MEDS: Polyethylene Glycol 3350 17 GM Packet PER TUBE SCH (05:22)
[2021-07-17] MEDS: Cefepime 2 GM in Sodium Chloride 0.9% 100 ML IVPB SCH ×3 (05:35→19:46)
[2021-07-17 05:46] LABS: MDiff Complete? YES; Platelet Morphology Comment Appears Adequate
[2021-07-17 05:47] LABS: RBC Morphology Normal
[2021-07-17 05:49] LABS: Band 1 % (5-11); Lymphocytes 5 % (21-51); Monocytes 8 % (0-10); Neutrophil 86 % (42-75)
[2021-07-17] MEDS: Dexmedetomidine In 0.9 % NaCl 100 ML IVPB SCH ×3 (07:33→19:45)
[2021-07-17] MEDS: Budesonide 0.5 MG/2 ML NEB NEB SCH ×2 (07:54→17:23)
[2021-07-17] MEDS: Famotidine/PF 20 mg/2ml Vial SLOW IVP SCH ×2 (08:03→19:46)
[2021-07-17] MEDS: Isoniazid 100 MG TAB PO SCH (08:03)
[2021-07-17] MEDS: Enoxaparin Sodium 40 MG/0.4 ML SYRINGE SC SCH (08:03)
[2021-07-17] MEDS: Ethambutol HCl 400 MG TAB PER TUBE SCH (08:04)
[2021-07-17] MEDS: Rifampin 300 MG CAP PO SCH (08:04)
[2021-07-17] MEDS: Pyrazinamide 500 MG TAB PER TUBE SCH (08:04)
[2021-07-17] MEDS: Senokot S 8.6-50 MG TAB PER TUBE SCH ×2 (08:05→19:47)
[2021-07-17] MEDS: Aspirin Chewable 81 MG TAB PO SCH (08:05)
[2021-07-17] MEDS: Diazepam 5 MG TAB PO SCH (08:05)
[2021-07-17] MEDS: Sodium Chloride 1 GM TAB PO SCH ×3 (08:05→19:49)
[2021-07-17 08:16] LABS: Vancomycin, Trough 22.9 ug/mL
[2021-07-17 10:09] LABS: QuantiFERON-TB Gold Plus Indeterminate (Negative)
[2021-07-17] MEDS: Thiamine HCl 500 MG, Admixture Fee 1 EACH in Sodium Chloride 0.9% 100 ML IVPB SCH (12:16)
[2021-07-17] MEDS: Prenatal Vitamin 1 TAB PO SCH (12:17)
[2021-07-17 19:53] LABS: Vancomycin, Random 17.8 ug/mL (See Comment)
[2021-07-17] MEDS ORDERED: Amiodarone 150 MG/3 ML VIAL IVP SCH (20:45)
[2021-07-17] MEDS: VANCOMYCIN 1.25 GM/250 ML BAG 1.25 GM in Premix Bag 1 BAG IVPB SCH (20:47)
[2021-07-18] MEDS: Dexmedetomidine In 0.9 % NaCl 100 ML IVPB SCH ×6 (00:14→22:26)
[2021-07-18] MEDS: fentaNYL Citrate-0.9 % NaCl/PF 100 ML IVPB SCH (00:14)
[2021-07-18] MEDS: Hydrocortisone Sod Succ/PF 100 mg/2 ml Vial IVP SCH ×2 (00:14→07:46)
[2021-07-18] MEDS: Metoclopramide HCl 10 MG/2 ML VIAL IVP SCH ×4 (01:54→20:10)
[2021-07-18] MEDS ORDERED: Amiodarone 150 MG/3 ML VIAL IVP SCH (03:15)
[2021-07-18 04:30] LABS: Mean Corpuscular HGB CONC 32.8 g/dL (32.0-36.0); Mean Corpuscular Hemoglobin 33.6 pg (27.0-33.0); Mean Corpuscular Volume 102.5 fl (81.2-95.1); Mean Platelet Volume 9.8 fl (7.4-10.4); Platelet Count 153 10x3/uL (150-450); RBC Distribution Width 14.5 % (11.5-14.5); Red Blood Cell (RBC) Count 3.57 10x6/uL (4.32-5.72); White Blood Cell (WBC) Count 27.6 10x3/uL (3.5-10.5)
[2021-07-18 04:44] LABS: MDiff Complete? YES
[2021-07-18 04:47] LABS: Band 6 % (5-11); Lymphocytes 2 % (21-51); Monocytes 4 % (0-10); Neutrophil 88 % (42-75)
[2021-07-18 04:49] LABS: Platelet Morphology Comment Appears Adequate; RBC Morphology Normal
[2021-07-18 05:04] LABS: ALT (SGPT) Less than 6 U/L (8-55); AST (SGOT) 14 U/L (5-34); Albumin 3.1 g/dL (3.4-4.8); Alkaline Phosphatase 70 U/L (40-110); Anion Gap 15 mmol/L (10-20); BUN (Urea Nitrogen) 50 mg/dL (8.4-25.7); Bilirubin, Total 0.4 mg/dL (0.2-1.2); Calc. Creatinine Clearance 0 mL/min (70-130); Calcium 8.6 mg/dL (7.8-10.44); Carbon Dioxide 19 mmol/L (23-31); Chloride 110 mmol/L (98-107); Globulin 2.6 g/dL (2.4-3.5); Glucose 178 mg/dL (80-115); Magnesium 2.4 mg/dL (1.6-2.6); Phosphorus 3.1 mg/dL (2.3-4.7); Potassium 5.5 mmol/L (3.5-5.1); Protein, Total 5.7 g/dL (5.8-8.1); Sodium 138 mmol/L (136-145)
[2021-07-18 05:36] LABS: Actual Bicarbonate (HCO3a) 20.1 mEq/L (22-28); Base Excess (BEa) -6.7 mEq/L (-2.0 to +3.0); CO2 Tension 45.5 mmHg (35.0-45.0); Calcium, Ionized (arterial) 1.29 mmol/L (1.12-1.30); Hemoglobin (Hb) 12.8 g/dL (14.0-18.0); O2 Tension (PaO2), arterial 93.5 mmHg (> 80.0); Potassium - ABG Lab 5.5 mmol/L (3.70-5.30); Puncture Site RRA; pH, Arterial 7.26 (7.35-7.45)
[2021-07-18 05:38] LABS: ALV-art Gradient 206.125 mmHg (0-20)
[2021-07-18] MEDS: Cefepime 2 GM in Sodium Chloride 0.9% 100 ML IVPB SCH ×3 (05:39→20:09)
[2021-07-18] MEDS: Sodium Chloride 0.9% 1,000 ML IV SCH ×2 (05:39→21:17)
[2021-07-18] MEDS: Polyethylene Glycol 3350 17 GM Packet PER TUBE SCH (05:39)
[2021-07-18] MEDS: Famotidine/PF 20 mg/2ml Vial SLOW IVP SCH ×2 (07:47→20:10)
[2021-07-18] MEDS: Sodium Chloride 1 GM TAB PO SCH ×3 (07:48→20:10)
[2021-07-18] MEDS: Senokot S 8.6-50 MG TAB PER TUBE SCH ×2 (07:48→20:10)
[2021-07-18] MEDS: Pyrazinamide 500 MG TAB PER TUBE SCH (07:49)
[2021-07-18] MEDS: Isoniazid 100 MG TAB PO SCH (07:51)
[2021-07-18] MEDS: Prenatal Vitamin 1 TAB PO SCH (07:51)
[2021-07-18] MEDS: Rifampin 300 MG CAP PO SCH (07:52)
[2021-07-18] MEDS: Enoxaparin Sodium 40 MG/0.4 ML SYRINGE SC SCH (07:52)
[2021-07-18] MEDS: Budesonide 0.5 MG/2 ML NEB NEB SCH ×2 (07:52→19:34)
[2021-07-18] MEDS: Ethambutol HCl 400 MG TAB PER TUBE SCH (07:52)
[2021-07-18] MEDS: Aspirin Chewable 81 MG TAB PO SCH (07:53)
[2021-07-18] MEDS: Thiamine HCl 500 MG, Admixture Fee 1 EACH in Sodium Chloride 0.9% 100 ML IVPB SCH (11:48)
[2021-07-18] MEDS ORDERED: Furosemide 40 MG/4 ML VIAL SLOW IVP SCH (13:30)
[2021-07-18] MEDS: Amiodarone In Dextrose 360 MG in Premix Bag 1 BAG IVPB SCH ×2 (13:38→18:26)
[2021-07-18] MEDS: VANCOMYCIN 1.25 GM/250 ML BAG 1.25 GM in Premix Bag 1 BAG IVPB SCH (14:56)
[2021-07-18] MEDS: Scopolamine 1.5 mg/72 hour Patch TD SCH (20:09)
[2021-07-18] MEDS: Enoxaparin Sodium 80 MG/0.8 ML SYRINGE SC SCH (20:10)
[2021-07-19] MEDS: Metoclopramide HCl 10 MG/2 ML VIAL IVP SCH ×5 (02:12→20:33)
[2021-07-19] MEDS: Haloperidol Lactate 5 MG/ML VIAL SLOW IVP PRN (02:29)
[2021-07-19] MEDS: Dexmedetomidine In 0.9 % NaCl 100 ML IVPB SCH ×4 (02:35→20:00)
[2021-07-19 05:04] LABS: Hemoglobin 11.4 g/dL (13.5-17.5); Mean Corpuscular HGB CONC 32.6 g/dL (32.0-36.0); Mean Corpuscular Volume 101.4 fl (81.2-95.1); Mean Platelet Volume 10.1 fl (7.4-10.4); Platelet Count 138 10x3/uL (150-450); RBC Distribution Width 14.8 % (11.5-14.5); Red Blood Cell (RBC) Count 3.45 10x6/uL (4.32-5.72); White Blood Cell (WBC) Count 21.3 10x3/uL (3.5-10.5)
[2021-07-19] MEDS: Polyethylene Glycol 3350 17 GM Packet PER TUBE SCH (05:13)
[2021-07-19] MEDS: Amiodarone In Dextrose 360 MG in Premix Bag 1 BAG IVPB SCH (05:13)
[2021-07-19] MEDS: Cefepime 2 GM in Sodium Chloride 0.9% 100 ML IVPB SCH ×2 (05:13→17:36)
[2021-07-19 05:24] LABS: MDiff Complete? YES
[2021-07-19 05:27] LABS: Band 7 % (5-11); Large Platelets SLIGHT; Lymphocytes 6 % (21-51); Monocytes 11 % (0-10); Neutrophil 76 % (42-75); Platelet Morphology Comment Appears Adequate
[2021-07-19 05:28] LABS: RBC Morphology Normal
[2021-07-19 05:29] LABS: Albumin 2.9 g/dL (3.4-4.8); Anion Gap 13 mmol/L (10-20); BUN (Urea Nitrogen) 61 mg/dL (8.4-25.7); BUN/Creatinine Ratio 37.89; Calc. Creatinine Clearance 53 mL/min (70-130); Calcium 8.7 mg/dL (7.8-10.44); Carbon Dioxide 19 mmol/L (23-31); Chloride 112 mmol/L (98-107); Glucose 151 mg/dL (80-115); Potassium 5.3 mmol/L (3.5-5.1); Sodium 139 mmol/L (136-145)
[2021-07-19] MEDS ORDERED: Digoxin 0.5 MG/2 ML AMP SLOW IVP SCH ×2 (07:30→11:15)
[2021-07-19] MEDS: Budesonide 0.5 MG/2 ML NEB NEB SCH ×3 (07:33→17:33)
[2021-07-19] MEDS ORDERED: Furosemide 40 MG/4 ML VIAL SLOW IVP SCH ×4 (09:00→21:00)
[2021-07-19] MEDS ORDERED: Amiodarone 200 MG TAB PER TUBE SCH (09:45)
[2021-07-19 10:28] LABS: Vancomycin, Trough 27.6 ug/mL
[2021-07-19] MEDS: Enoxaparin Sodium 80 MG/0.8 ML SYRINGE SC SCH ×2 (10:31→20:34)
[2021-07-19] MEDS: Thiamine 100 MG TAB PO SCH (10:32)
[2021-07-19] MEDS: Famotidine/PF 20 mg/2ml Vial SLOW IVP SCH ×2 (10:32→20:33)
[2021-07-19] MEDS: Aspirin Chewable 81 MG TAB PO SCH (10:34)
[2021-07-19] MEDS: Senokot S 8.6-50 MG TAB PER TUBE SCH ×2 (10:34→20:33)
[2021-07-19] MEDS: Isoniazid 100 MG TAB PO SCH (10:35)
[2021-07-19] MEDS: Prenatal Vitamin 1 TAB PO SCH (10:35)
[2021-07-19] MEDS: Rifampin 300 MG CAP PO SCH (10:35)
[2021-07-19] MEDS: Ethambutol HCl 400 MG TAB PER TUBE SCH (10:35)
[2021-07-19] MEDS: Pyrazinamide 500 MG TAB PER TUBE SCH (10:36)
[2021-07-19] MEDS: Sodium Chloride 0.9% 1,000 ML IV SCH (11:35)
[2021-07-19] MEDS: Sodium Chloride 1 GM TAB PO SCH ×3 (11:37→20:34)
[2021-07-19] MEDS: Ipratropium Bromide 2.5 ml Neb NEB SCH ×2 (12:57→17:34)
[2021-07-19] MEDS: Sodium Chloride 3% (15 ML) NEB NEB SCH ×2 (12:58→17:34)
[2021-07-19] MEDS ORDERED: Furosemide 100 MG/10 ML VIAL SLOW IVP SCH (17:30)
[2021-07-19] MEDS ORDERED: Magnesium 2 GM/50 ML(in water) 2 GM in Premix Bag 1 BAG IVPB SCH (19:16)
[2021-07-19] MEDS: VANCOMYCIN 1.25 GM/250 ML BAG 1.25 GM in Premix Bag 1 BAG IVPB SCH (20:18)
[2021-07-19] MEDS: Amiodarone 200 MG TAB PER TUBE SCH (20:34)
[2021-07-20] MEDS: Dexmedetomidine In 0.9 % NaCl 100 ML IVPB SCH ×6 (00:21→21:43)
[2021-07-20] MEDS: Ipratropium Bromide 2.5 ml Neb NEB SCH ×4 (03:11→19:05)
[2021-07-20] MEDS: Sodium Chloride 3% (15 ML) NEB NEB SCH ×4 (03:11→19:27)
[2021-07-20 04:06] LABS: #Basophils 0.1 10x3/uL (0.0-0.2); #Eosinphils 0.2 10x3/uL (0.0-0.5); #Monocytes 2.1 10x3/uL (0.0-1.1); #Neutrophils 14.1 10x3/uL (1.5-8.4); %Basophils 0.3 % (0.0-2.0); %Eosinophils 0.9 % (0.0-6.0); %Lymphocytes 5.2 % (18.0-47.0); %Monocytes 12.2 % (0.0-10.0); %Neutrophils 80.4 % (40.0-75.0); Hemoglobin 11.2 g/dL (13.5-17.5); Mean Corpuscular HGB CONC 32.7 g/dL (32.0-36.0); Mean Corpuscular Hemoglobin 33.3 pg (27.0-33.0); Mean Corpuscular Volume 102.1 fl (81.2-95.1); Platelet Count 157 10x3/uL (150-450); RBC Distribution Width 14.8 % (11.5-14.5); Red Blood Cell (RBC) Count 3.36 10x6/uL (4.32-5.72); White Blood Cell (WBC) Count 17.6 10x3/uL (3.5-10.5)
[2021-07-20 04:08] LABS: Anion Gap 16 mmol/L (10-20); BUN (Urea Nitrogen) 74 mg/dL (8.4-25.7); BUN/Creatinine Ratio 31.76; Calc. Creatinine Clearance 39 mL/min (70-130); Calcium 9.1 mg/dL (7.8-10.44); Carbon Dioxide 17 mmol/L (23-31); Chloride 114 mmol/L (98-107); Glucose 144 mg/dL (80-115); Phosphorus 3.6 mg/dL (2.3-4.7); Potassium 5.5 mmol/L (3.5-5.1); Sodium 141 mmol/L (136-145)
[2021-07-20] MEDS: Polyethylene Glycol 3350 17 GM Packet PER TUBE SCH (05:46)
[2021-07-20] MEDS: Cefepime 2 GM in Sodium Chloride 0.9% 100 ML IVPB SCH ×2 (05:46→18:23)
[2021-07-20] MEDS: Budesonide 0.5 MG/2 ML NEB NEB SCH ×3 (08:00→19:05)
[2021-07-20] MEDS: Metoclopramide HCl 10 MG/2 ML VIAL IVP SCH ×2 (08:23→12:35)
[2021-07-20] MEDS ORDERED: Metoprolol Tartrate 25 MG TAB PO SCH ×2 (09:00)
[2021-07-20 09:06] LABS: Vancomycin, Random 23.1 ug/mL (See Comment)
[2021-07-20] MEDS: Amiodarone 200 MG TAB PER TUBE SCH ×2 (09:32→21:23)
[2021-07-20] MEDS: Aspirin Chewable 81 MG TAB PO SCH (09:32)
[2021-07-20] MEDS: Sodium Chloride 1 GM TAB PO SCH ×3 (09:32→21:23)
[2021-07-20] MEDS: Enoxaparin Sodium 80 MG/0.8 ML SYRINGE SC SCH ×2 (09:32→21:23)
[2021-07-20] MEDS: Famotidine/PF 20 mg/2ml Vial SLOW IVP SCH (09:32)
[2021-07-20] MEDS: Senokot S 8.6-50 MG TAB PER TUBE SCH ×2 (09:33→21:24)
[2021-07-20] MEDS: Pyrazinamide 500 MG TAB PER TUBE SCH (09:33)
[2021-07-20] MEDS: Ethambutol HCl 400 MG TAB PER TUBE SCH (09:33)
[2021-07-20] MEDS: Isoniazid 100 MG TAB PO SCH (09:34)
[2021-07-20] MEDS: Rifampin 300 MG CAP PO SCH (09:34)
[2021-07-20] MEDS ORDERED: LOKELMA 5 GM PACKET PO SCH (10:00)
[2021-07-20] MEDS ORDERED: Vancomycin HCl 1 GM in Sodium Chloride 0.9% 250 ML 250 ML IVPB SCH (10:00)
[2021-07-20] MEDS ORDERED: Norepinephrine 8 MG/0.9% NS 250 ML ONE (10:48)
[2021-07-20] MEDS: Thiamine 100 MG TAB PO SCH (12:36)
[2021-07-20] MEDS: Prenatal Vitamin 1 TAB PO SCH (12:50)
[2021-07-20] MEDS ORDERED: Norepinephrine 8 MG/0.9% NS 250 ML IVPB SCH (13:30)
[2021-07-20] MEDS ORDERED: Vasopressin 20 UNIT, Admixture Fee 1 EACH in Sodium Chloride 0.9% 50 ML IV SCH (13:30)
[2021-07-20 14:13] VITALS: BMI 23.8
[2021-07-20] MEDS ORDERED: Albumin 25% 25 GM/100 ML BOT IVPB SCH (18:00)
[2021-07-21] MEDS: Sodium Chloride 3% (15 ML) NEB NEB SCH ×2 (00:59→07:30)
[2021-07-21] MEDS: Ipratropium Bromide 2.5 ml Neb NEB SCH ×2 (00:59→05:49)
[2021-07-21] MEDS: Dexmedetomidine In 0.9 % NaCl 100 ML IVPB SCH ×2 (02:36→06:44)
[2021-07-21 04:31] LABS: Hemoglobin 11.6 g/dL (13.5-17.5); Mean Corpuscular Hemoglobin 33.1 pg (27.0-33.0); Mean Corpuscular Volume 103.4 fl (81.2-95.1); Platelet Count 226 10x3/uL (150-450); RBC Distribution Width 15.2 % (11.5-14.5)
[2021-07-21 04:58] LABS: MDiff Complete? YES
[2021-07-21 05:10] LABS: ALT (SGPT) Less than 6 U/L (8-55); AST (SGOT) 17 U/L (5-34); Albumin 3.3 g/dL (3.4-4.8); Alkaline Phosphatase 73 U/L (40-110); Anion Gap 17 mmol/L (10-20); BUN (Urea Nitrogen) 86 mg/dL (8.4-25.7); Bilirubin, Total 0.3 mg/dL (0.2-1.2); Calc. Creatinine Clearance 28 mL/min (70-130); Calcium 9.8 mg/dL (7.8-10.44); Carbon Dioxide 17 mmol/L (23-31); Chloride 112 mmol/L (98-107); Globulin 2.7 g/dL (2.4-3.5); Glucose 143 mg/dL (80-115); Phosphorus 4.7 mg/dL (2.3-4.7); Potassium 5.8 mmol/L (3.5-5.1); Sodium 140 mmol/L (136-145)
[2021-07-21 05:32] LABS: Band 14 % (5-11); Lymphocytes 4 % (21-51); Metamyelocyte 1 % (0-0); Monocytes 6 % (0-10); Myelocyte 2 % (0-0); Neutrophil 73 % (42-75)
[2021-07-21 05:33] LABS: Platelet Morphology Comment Appears Adequate; RBC Morphology Normal
[2021-07-21] MEDS: Polyethylene Glycol 3350 17 GM Packet PER TUBE SCH (05:46)
[2021-07-21] MEDS: Cefepime 2 GM in Sodium Chloride 0.9% 100 ML IVPB SCH (05:46)
[2021-07-21] MEDS: Budesonide 0.5 MG/2 ML NEB NEB SCH (05:49)
[2021-07-21 07:56] LABS: ALV-art Gradient 171.425 mmHg (0-20); Actual Bicarbonate (HCO3a) 12.9 mEq/L (22-28); CO2 Tension 42.1 mmHg (35.0-45.0); Calcium, Ionized (arterial) 1.41 mmol/L (1.12-1.30); Carboxyhemoglobin (COHb) 0.6 gm% (0.0-3.0); Hemoglobin (Hb) 11.7 g/dL (14.0-18.0); O2 Tension (PaO2), arterial 96.8 mmHg (> 80.0); Potassium - ABG Lab 5.4 mmol/L (3.70-5.30); Puncture Site LRA
[2021-07-21 07:58] VITALS: TEMP 97.7
[2021-07-21] MEDS: Aspirin Chewable 81 MG TAB PO SCH (08:04)
[2021-07-21] MEDS: Ethambutol HCl 400 MG TAB PER TUBE SCH (08:04)
[2021-07-21] MEDS: Famotidine/PF 20 mg/2ml Vial SLOW IVP SCH (08:04)
[2021-07-21] MEDS: Amiodarone 200 MG TAB PER TUBE SCH (08:04)
[2021-07-21] MEDS: Rifampin 300 MG CAP PO SCH (08:05)
[2021-07-21] MEDS: Pyrazinamide 500 MG TAB PER TUBE SCH (08:05)
[2021-07-21] MEDS: Isoniazid 100 MG TAB PO SCH (08:05)
[2021-07-21] MEDS: Senokot S 8.6-50 MG TAB PER TUBE SCH (08:06)
[2021-07-21] MEDS ORDERED: Sodium Bicarb 50 MEQ/50 ML Abboject 8.4% SYRINGE IVP SCH (08:15)
[2021-07-21] MEDS ORDERED: Sodium Bicarb 50 MEQ/50 ML VIAL IVP SCH (08:15)
[2021-07-21] MEDS ORDERED: LOKELMA 10 GM PACKET PER TUBE SCH (09:00)
[2021-07-21 09:25] VITALS: BP 104/74
[2021-07-21] MEDS: Morphine 4 MG/ML VIAL SLOW IVP PRN ×3 (09:51→11:25)
[2021-07-21] MEDS: Lorazepam 2 MG/ML VIAL SLOW IVP PRN ×3 (09:53→11:25)
[2021-07-21] MEDS ORDERED: Enoxaparin Sodium 80 MG/0.8 ML SYRINGE SC SCH (21:00)
[2021-07-22 08:39] LABS: QuantiFERON-TB Gold Plus Indeterminate (Negative)
== END 2021-07-21 11:46 | disposition expired | DRG 870 ==
LOC: CSHERS 11:44 → CSHIMCU 14:25 → CSHICU 07-14 12:15
PROVIDERS: ADMIT Hospitalist; ATTEND Student in an Organized Health Care Education/Training Program
PROC: 5A1955Z Respiratory Ventilation, Greater than 96 Consecutive Hours (ICD-10-PCS; 2021-07-12)
PROC: 0BH18EZ Insertion of Endotracheal Airway into Trachea, Via Natural or Artificial Opening Endoscopic (ICD-10-PCS; 2021-07-12)
PROC: 3E043XZ Introduction of Vasopressor into Central Vein, Percutaneous Approach (ICD-10-PCS; 2021-07-12)
PROC: 03HY32Z Insertion of Monitoring Device into Upper Artery, Percutaneous Approach (ICD-10-PCS; 2021-07-12)
PROC: 3E03329 Introduction of Other Anti-infective into Peripheral Vein, Percutaneous Approach (ICD-10-PCS; 2021-07-12)
PROC: 05HM33Z Insertion of Infusion Device into Right Internal Jugular Vein, Percutaneous Approach (ICD-10-PCS; 2021-07-12)
PROC: B543ZZA Ultrasonography of Right Jugular Veins, Guidance (ICD-10-PCS; 2021-07-12)
PROC: 03HY32Z Insertion of Monitoring Device into Upper Artery, Percutaneous Approach (ICD-10-PCS; 2021-07-13)
PROC: 0B9M8ZX Drainage of Bilateral Lungs, Via Natural or Artificial Opening Endoscopic, Diagnostic (ICD-10-PCS; principal; 2021-07-14)
DX: A41.9 Sepsis, unspecified organism (principal); J96.01 Acute respiratory failure with hypoxia; R65.21 Severe sepsis with septic shock; G93.41 Metabolic encephalopathy; I21.A1 Myocardial infarction type 2; I50.43 Acute on chronic combined systolic (congestive) and diastolic (congestive) heart failure; J18.9 Pneumonia, unspecified organism; N17.0 Acute kidney failure with tubular necrosis; A15.0 Tuberculosis of lung; M62.82 Rhabdomyolysis; E22.2 Syndrome of inappropriate secretion of antidiuretic hormone; J44.0 Chronic obstructive pulmonary disease with (acute) lower respiratory infection; C34.90 Malignant neoplasm of unspecified part of unspecified bronchus or lung; R71.0 Precipitous drop in hematocrit; E87.2 Acidosis; Z66 Do not resuscitate; Z51.5 Encounter for palliative care; R74.01 Elevation of levels of liver transaminase levels; I08.3 Combined rheumatic disorders of mitral, aortic and tricuspid valves; R54 Age-related physical debility; I48.91 Unspecified atrial fibrillation; F10.10 Alcohol abuse, uncomplicated; I27.20 Pulmonary hypertension, unspecified; R41.0 Disorientation, unspecified; F17.210 Nicotine dependence, cigarettes, uncomplicated; G83.9 Paralytic syndrome, unspecified; E87.5 Hyperkalemia; R45.1 Restlessness and agitation; Z71.6 Tobacco abuse counseling
CPT/HCPCS: 36415; 36600; 70450; 71045; 71275; 80048; 80053; 80069; 80202; 80306; 82040; 82550; 82805; 83605; 83735; 83930; 83935; 84100; 84145; 84484; 85025; 85652; 86140; 86480; 87040; 87070; 87116; 87205; 87206; 87389; 87449; 87899; 88112; 88305; 88312; 89051; 89220; 93005; 93010; 93306; 94002; 94003; 94640; 94760; 96374; J0282; J0692; J1160; J1630; J1650; J1720; J1940; J1956; J2060; J2250; J2270; J2560; J2704; J2765; J3370; J3411; J3475; J3490; J7050; J7131; J7620; J7626; P9045; P9047; Q9967; S0028